=== PATIENT | male | born 1950 | race Caucasian/White ===

== ENCOUNTER 2018-11-15 06:51 | Day surgery (SDC) | payer MEDICARE, OTHER ==
[~2018-11-15] VITALS: Ht 180.3 cm; Wt 83.9 kg
[~2018-11-15 06:51] MED LIST: ASPI325T4 PO; ATOR20TA50 PO; LEVO88TA36 PO; MAGN500C PO; OME20T PO
[2018-11-15] MEDS ORDERED: LIDOCAINE 2%HCL (LOCAL ANESTH.) INJ 20ML MDV ONE (07:44)
[2018-11-15] MEDS ORDERED: IODIXANOL 320MG/ML 100ML BTL IV ONE (07:44)
[2018-11-15] MEDS ORDERED: ANGIOMAX 250 MG VIAL IV ONE (07:55)
[2018-11-15] MEDS ORDERED: fentaNYL CITRATE 100 MCG/2 ML VL ONE (07:55)
[2018-11-15] MEDS ORDERED: MIDAZOLAM HCL 1MG/1ML-2 ML VIAL ONE (07:55)
[2018-11-15] MEDS ORDERED: VERAPAMIL 2.5MG/ML INJ 2ML VIAL IV ONE (07:55)
[2018-11-15] MEDS ORDERED: SODIUM CHL 0.9% 0 ML ONE (07:56)
[2018-11-15] MEDS ORDERED: HEPARIN SODIUM (PORCINE) 5000 UNITS/ML 1ML VIAL ONE (08:22)
== END 2018-11-15 10:40 | disposition home or self-care (01) ==
LOC: CATH 06:51
PROVIDERS: ATTEND Internal Medicine
DX: I25.10 Atherosclerotic heart disease of native coronary artery without angina pectoris (principal); I48.91 Unspecified atrial fibrillation; E03.9 Hypothyroidism, unspecified; E78.5 Hyperlipidemia, unspecified; I77.819 Aortic ectasia, unspecified site; I10 Essential (primary) hypertension; Z79.82 Long term (current) use of aspirin; Z79.899 Other long term (current) drug therapy
CPT/HCPCS: 93458; C1769; C1894; J1644; J2250; J3010; J7030; Q9967; 93005; 99152

== ENCOUNTER → 2024-09-19 | Outpatient (CLI) | payer MEDICARE, OTHER ==
[~2024-09-19] MED LIST changes: -ASPI325T4 PO; +ASPI325T6 PO; +LEVO88TA2 PO; -LEVO88TA36 PO
== END | disposition home or self-care (01) ==
LOC: Rad HDHVI 13:43
PROVIDERS: ATTEND Internal Medicine Cardiovascular Disease
DX: I35.1 Nonrheumatic aortic (valve) insufficiency (principal); I10 Essential (primary) hypertension
CPT/HCPCS: 93306

== ENCOUNTER → 2024-09-21 | Outpatient (CLI) | payer MEDICARE ==
[~2024-09-21] VITALS: Ht 180.3 cm; Wt 78.9 kg
--- NOTE | 2024-09-30 12:57 | DVHSR ---
APPROVED REPORT Exam: Nuclear Stress Test Indication: Chest pain Ht: 5 ft 11 in Wt: 174 lbs BSA: 1.99 m2 HR: 51 bpm BP: 139/86 mmHg BMI: 24.26 Rhythm: Bradycardia Medical History Medical History: HTN Medications: Dyazide, Omeprazole, Aspirin, Magnesium citrate, Methotrexate, Folic Acid, Prednisone, I rbesartan Allergies: No known drug allergies Cardiac Risk Factors: Family Hx of CAD Stress Test Details Stress Test: Exercise stress testing was performed using a Hussain protocol. HR Resting HR: 51 bpmMax Heart Rate (APMHR): 149.773422 bpm Max HR Achieved: 125 bpmTarget HR (85% APMHR): 126.599562 bpm % of APMHR: 83.89 Recovery HR: 77 bpm HR response to stress: Normal HR response to stress BP Resting BP: 139/86 mmHg Max BP: 202/82 mmHg Recovery BP: 148/79 mmHg BP response to stress: Exaggerated response ECG Resting ECG: Sinus Bradycardia Stress ECG: Sinus Tachycardia Arrhythmia: PACs Recovery ECG: Sinus Rhythm Clinical Reason for Termination: Fatigue, Elevated BP Stress Symptoms: Dyspnea, Fatigue Exercise duration: 7 min 50 sec Exercise capacity: 10.1 METs Symptoms resolved during recovery. Stress ECG Conclusion NON ISCHEMIC CLINICAL RESPONSE NON ISCHEMIC ECG RESPONSE PARTAIL INFERIOR FIXED DEFECT NOTED DURING STRESS CARDIOLITE APICAL SMALL FIXED DEFECT EF >55% LESS THAN 10% LIKELIHOOD FOR STRESS INDUCED ISCHEMIA NM EXAM: Myocardial Perfusion REST/STRESS Imaging Protocol: Rest Tc-99m/Stress Tc-99m 1 day Resting Data Rest SPECT myocardial perfusion imaging was performed in supine position 30 minutes following the int ravenous injection of 10.73 mCi of Tc-99m Sestamibi. Time of rest injection: 1306 Date: 09/21/2024 Time of rest imagin Date: 09/21/2024 Administration Route: IV Administration Site: Left AC Exercise Stress At peak stress, the patient was injected intravenously with 32.7 mCi of Tc-99m Sestamibi. Time of stress injection: 1411 Date: 09/21/2024 Time of stress imagin Date: 09/21/2024 Administration Route: IV Administration Site: Left AC Heart Rate at time of stress injection: 125 bpm. Patient continued to exercise for 1 minute(s). Gated Stress SPECT was performed 15 minutes after stress injection. The images were gated to evaluate regional wall motion and calculate left ventricular ejection fracti on. Comments Cardiolite injection at 6 minutes, 51 seconds into test. Study Data Post stress, the left ventricular ejection was 57%.. Nuclear Conclusion NON ISCHEMIC CLINICAL RESPONSE NON ISCHEMIC ECG RESPONSE PARTAIL INFERIOR FIXED DEFECT NOTED DURING STRESS CARDIOLITE APICAL SMALL FIXED DEFECT EF >55% LESS THAN 10% LIKELIHOOD FOR STRESS INDUCED ISCHEMIA
== END | disposition home or self-care (01) ==
LOC: Rad HDHVI 12:47
PROVIDERS: ATTEND Internal Medicine Cardiovascular Disease
DX: I49.1 Atrial premature depolarization (principal); R00.0 Tachycardia, unspecified; R00.1 Bradycardia, unspecified; R53.83 Other fatigue; R06.00 Dyspnea, unspecified; R03.0 Elevated blood-pressure reading, without diagnosis of hypertension; I10 Essential (primary) hypertension; I48.91 Unspecified atrial fibrillation; R07.89 Other chest pain; Z82.49 Family history of ischemic heart disease and other diseases of the circulatory system
CPT/HCPCS: 78452; 93017; A9500; 96374

== ENCOUNTER 2025-03-08 12:51 | Outpatient (CLI) | payer MEDICARE | END 2025-03-08 17:00 | disposition home or self-care (01) | LOC: Rad HDHVI 12:51 | PROVIDERS: ATTEND Internal Medicine Cardiovascular Disease | DX: I08.2 Rheumatic disorders of both aortic and tricuspid valves (principal); I11.9 Hypertensive heart disease without heart failure; I48.0 Paroxysmal atrial fibrillation | CPT/HCPCS: 93306 ==